=== PATIENT | male | born 1960 | race Caucasian/White ===

== ENCOUNTER → 2021-01-26 00:40 | Outpatient (CLI) | payer OTHER, SELFPAY ==
[2021-01-26 20:24] LABS: SARS-CoV-2 RNA PCR Negative
== END ==
PROVIDERS: Visit Provider Surgery
DX: Z01.812 Encounter for preprocedural laboratory examination (principal); Z20.822 Contact with and (suspected) exposure to COVID-19
CPT/HCPCS: C9803; U0003; U0005

== ENCOUNTER 2021-01-26 07:44 | Outpatient (CLI) | payer OTHER, SELFPAY ==
--- NOTE | 2021-01-26 09:00 | ECG_ITS ---
Measurements Intervals Hawkins Rate: 71 P: 78 SC: 155 QRS: 28 QRSD: 89 T: 57 QT: 359 QTc: 391 Interpretive Statements SINUS RHYTHM POSSIBLE LEFT ATRIAL ENLARGEMENT RIGHT BUNDLE BRANCH BLOCK ABNORMAL ECG Electronically Signed On 01-26-2021 7:58:12 CDT by Tyshawn Briones D.O.
== END 2021-01-26 07:45 | disposition home or self-care (01) ==
LOC: ANHSURGERY 07:49
PROVIDERS: Visit Provider Surgery
DX: Z01.810 Encounter for preprocedural cardiovascular examination (principal); I45.10 Unspecified right bundle-branch block; Z72.0 Tobacco use
CPT/HCPCS: 93005

== ENCOUNTER 2021-01-29 00:59 | Day surgery (SDC) | payer OTHER, SELFPAY ==
[2021-01-19 17:01] VITALS: BMI 23.8
--- NOTE | 2021-01-27 15:20 | PM.SD2 ---
Same Day Admit/Disch: HPI History of Present Illness Chief complaint: left inguinal hernia Narrative: Klaus Grimaldo is a 60 year old male Who noticed a left groin bulge after straining with a ranch at work. He was seen in the office and found to have a reducible left inguinal hernia. He had a right inguinal hernia repair in March of 2014. He smokes 1-1/2 packs of cigarettes per day. He is taken to surgery now for left inguinal hernia repair. [facility] Past Medical History Medical History Smoker Surgical History Surgical History History of hand surgery index finger surgery 1984 History of hernia repair Family History Family History Sibling Cerebrovascular accident Mother Family history of malignant neoplasm Father Family history of heart disease in male family member before age 55 Other Diabetes mellitus Family history of cardiovascular disease Social History Social History Smoking packs per day: 1 Smoking cigarettes per day: 20.0 Years smoked: 45 Smoking pack-years: 45.00 Smoking status: Current every day smoker Tobacco type: cigarettes Living arrangements: alone Additional occupation/education comments: [employer] care concerns: No Same Day Admit/Disch: Med Pre-admit Medications Home Medications Medication Instructions Recorded Confirmed Type hydrocodone-acetaminophen 1 - 2 tablet PO Q6H PRN #7 tablet 01/29/21 Rx ketorolac 10 mg PO Q6H 4 Days #16 tablet 01/29/21 Rx Exam Const: General: comfortable, no acute distress, alert and awake HENMT: Head: normocephalic and atraumatic Mouth: Yes Normal oral and palatal mucosa present Eyes: Conjunctivae: conjunctivae normal Pupils: Equal, round and reactive pupils present EOM: EOMs intact bilaterally Neck: Neck: normal visual inspection, no lymphadenopathy and nontender Resp: Effort & Inspection: normal respiratory effort Auscultation: clear to auscultation bilaterally Cardio: Rate: regular rate Rhythm: regular rhythm Heart sounds: no gallops, no murmurs and no rubs GI: Inspection: non-distended GI Palp: Yes Soft to palpation, No Tenderness to palpation present (GI), No Hepatomegaly present and No Splenomegaly present : Penis: Yes normal penis Scrotum: scrotum normal and inguinal hernia on the left ( Reducible left inguinal hernia) Testes: Testes normal Skin: Lesions: no lesions Rashes: no rashes Neuro: General: no focal motor deficits and CN's II-XI intact bilaterally Cranial nerves: Yes Equal, round and reactive pupils present, Yes Bilaterally intact EOM present, Yes facial symmetry and Yes Midline tongue present Speech: normal speech Motor exam (neuro): 5/5 motor strength present throughout and Motor abnormalities not present Extrem: General: no clubbing, cyanosis or edema and edema Psych: Affect: normal affect Thought process: Normal thought process present Insight: Good insight present (Psych) DS: Summary Time Spent with Patient Time attestation: Total time spent providing and/or coordinating discharge services: DS: Admitting Diagnosis Admitting Diagnosis Admitting Diagnosis: left inguinal hernia-- plan to proceed with left inguinal hernia repair under anesthesia. The procedure the risks the benefits have been discussed. All questions were answered. He understands and agrees to go ahead. smoker-- Advised to quit. Increases surgical risk. DS: Discharge Diagnosis Discharge Diagnosis (1) Left inguinal hernia: Code(s): K40.90 - Unilateral inguinal hernia, without obstruction or gangrene, not specified as recurrent Status: Chronic (2) Tobacco abuse: Code(s): Z72.0 - Tobacco use Status: Chronic Discharge Plan Discharge Patient Disposition: Home, Self-Care Discharge Instructions: 1. March sh
[2021-01-29] VITALS (7 sets, daily range): BP systolic 118–154; BP diastolic 67–93; PULSE 60–83; RESP 14–16; TEMP 36.4; O2SAT 94–100
--- NOTE | 2021-01-29 06:17 | WPDHPUPDATE1 ---
History and Physical Update Update Date/Time: 01/29/21 06:17 History and Physical has been reviewed, including an updated exam of the patient. There are NO changes in the patient's condition. Risks, benefits, and alternatives have been discussed and questions answered. Patient agrees to proceed with procedure.
[2021-01-29] MEDS: ACETAMINOPHEN 500 MG TABLET 1000 MG PO (08:43)
[2021-01-29] MEDS: KETOROLAC 15 MG/ML VIAL (*BKC) IV PUSH (09:12)
[2021-01-29] MEDS: LACTATED RINGERS 1,000 ML 30 ML IV CONT ×2 (09:12→12:26)
--- NOTE | 2021-01-29 09:22 | P.PNAN_ITS ---
Anes - Initial Pre Proc Eval Procedure: Operation Date: 01/29/21 10:30 Proposed Procedures p Left Inguinal Hernia Repair - Julito Saldana MD Date/Time: 01/29/21 09:22 Surgeon: Julito Saldana MD Pre Op Diagnosis: left inguinal hernia Patient Data Age: 60 Gender: M Height: 5 ft 6.5 in Weight: 63.5 kg Last Vital Signs Temp 36.4 C L 01/29/21 08:28 Pulse 83 01/29/21 08:28 Resp 16 01/29/21 08:28 BP 154/93 H 01/29/21 08:28 Pulse Ox 100 01/29/21 08:28 Allergies Allergy/AdvReac Type Severity Reaction Status Date / Time No Known Allergies Allergy Verified 01/29/21 08:40 Home Medications Medication Instructions Recorded Confirmed Type No Home Medications 12/04/20 01/29/21 History Patient hx anesthesia problems: none Family hx anesthesia problems: none PMFSH Past Medical History Medical History Smoker Surgical History Surgical History History of hand surgery index finger surgery 1984 History of hernia repair Family History Family History Sibling Cerebrovascular accident Mother Family history of malignant neoplasm Father Family history of heart disease in male family member before age 55 Other Diabetes mellitus Family history of cardiovascular disease Social History Social History Smoking packs per day: 1 Smoking cigarettes per day: 20.0 Years smoked: 45 Smoking pack-years: 45.00 Smoking status: Current every day smoker Tobacco type: cigarettes Living arrangements: alone Additional occupation/education comments: [employer] Spiritual care concerns: No Anes - Eval Final PreProcedure Day of Procedure 01/29/21 09:22 Patient weight: normal Heart: regular rate and rhythm Lungs: clear to auscultation Airway: Mallampati scale class 1 and other (edentulous with implant pegs) Neurological: alert and oriented Last oral intake: >/= 8 hours ASA classification: II Emergent: no Anesthetic plan: proceed Anesthesia type and monitoring: general GIVS and standard monitoring Informed Consent: The patient's anesthetic plan and its attendant risks and benefits were discussed with the patient/family/POA. Questions were solicited and answers provided to the satisfaction of the patient/family/POA.
[2021-01-29] MEDS: ceFAZolin 2 GM/D5W 50 ML 2 GM/50 ML BAG IVPB (10:58)
--- NOTE | 2021-01-29 12:29 | PM.PROC ---
Procedure Note - Detailed Date of procedure: 01/29/21 Pre-op diagnosis: left inguinal hernia Left inguinal hernia Post-op diagnosis: same (Indirect hernia) Procedure performed: Repair of left inguinal hernia with 6 cm Parietex hernia mesh system Description of procedure: The patient was taken to surgery and IV sedation was administered. The left groin and genitalia were prepped and draped. Proposed incision was marked on the skin. Local was infiltrated into the skin and the deeper subcutaneous tissues. Incision was made and deepened through the subcutaneous. Crossing veins were cauterized and divided. Dissection was carried through Abundio's fascia down to the external oblique aponeurosis. The aponeurosis was exposed as was the external ring. Additional local anesthesia was infiltrated deep to the aponeurosis in the area of the spermatic cord and inguinal canal contents. The aponeurosis was opened laterally and extended medially through the external ring. The leaves of the aponeurosis were dissected free from the spermatic cord. The ileoinguinal nerve was carefully preserved throughout the dissection and was left attached to the spermatic cord. The cord was then mobilized medially on a [place]ridge drain. The cord was dissected back to the internal ring. Dissection was then carried out in the anteromedial spermatic cord. The hernia sac was found and dissected free. The sac was then dissected back to a high dissection. It was dunked into the retroperitoneum. A 6 centimeter Parietex bishop paiute was chosen. It was folded to form a plug. It was placed in the defect. The edges were sutured to the transversalis fascia with interrupted 3 0 Vicryl suture. The patch was then cut to the appropriate size and placed over the inguinal canal floor. The lateral leaves were passed beyond the cord. The cord and ileoinguinal nerve were then laid over the patch. The external oblique aponeurosis was closed with interrupted 3 0 Vicryl suture. Abundio's fascia was closed with interrupted 3 0 Vicryl suture. Four 0 Vicryl subcuticular skin sutures were placed. The skin was closed finally with a running 4 0 Monocryl skin suture. The wound was dressed with Exofin surgical adhesive. The patient was awakened and taken to recovery in good condition. Sponge and needle counts were correct x2. Anesthesia: MAC and local (0.5% Marcaine with Exparel) Surgeon: Julito Saldana MD Med[employer] Professor: RANJITH Thurston Estimated blood loss (mL): 5 Drains: No Packing: No Pathology: none sent Complications: None Condition: stable Disposition: PACU Findings: Indirect inguinal hernia. No sliding hernia was noted.
--- NOTE | 2021-01-29 16:29 | SUR.PHASEII ---
1450 PT URINATED WITHOUT ISSUE
== END 2021-01-29 15:00 | disposition home or self-care (01) ==
PROVIDERS: Visit Provider Surgery
PROC: (CPT 49505; principal; 2021-01-29 10:30)
DX: K40.90 Unilateral inguinal hernia, without obstruction or gangrene, not specified as recurrent (principal); F17.210 Nicotine dependence, cigarettes, uncomplicated
CPT/HCPCS: 49505; A9270; C1781; C9290; J0690; J1885; J2250; J2704; J3010; J7120

== ENCOUNTER 2023-03-31 08:04 | Outpatient (CLI) | payer OTHER, SELFPAY ==
--- NOTE | ~2023-03-31 | US_ITS ---
EXAMINATION: US arterial ankle brachial ind DATE: 03/31/2023 08:57 INDICATION: Peripheral vascular disease TECHNIQUE: Segmental pressures and plethysmographic and Doppler waveforms of the brachial and lower e xtremity arteries were obtained. COMPARISON: None. FINDINGS: Right and left brachial artery pressures of 140 mm Hg and 148 mm Hg, respectively, are concordant (no rmal difference <= 30 mmHg). The right ankle-brachial index (HILDA) is 0.39 (normal >= 0.9-1.0). The right great toe-brachial index (TBI) is 0.55 (normal >= 0.65). Arterial Doppler waveforms are biphasic with brisk systolic upstrokes at the right posterior tibial artery and essentially monophasic at the right dorsalis pedis artery. The left HILDA is 0.46. The left TBI is 0.30. There are parvus and tardus arterial Doppler waveforms wi th delayed systolic upstrokes and at both the left posterior tibial and dorsalis pedis arteries appea ring nearly aphasic at the left dorsalis pedis artery. IMPRESSION: 1. Arterial occlusive disease to the bilateral lower limbs with severely decreased bilateral ABIs. Reviewed, dictated and finalized at location A. IMPRESSION: 1. Arterial occlusive disease to the bilateral lower limbs with severely decrea sed bilateral ABIs.
== END 2023-03-31 08:05 | disposition home or self-care (01) ==
PROVIDERS: PCP Family Medicine; Visit Provider Physician Assistant
DX: I70.8 Atherosclerosis of other arteries (principal)
CPT/HCPCS: 93922

== ENCOUNTER 2023-04-21 10:04 | Outpatient (CLI) | payer OTHER, SELFPAY ==
--- NOTE | 2023-04-21 11:00 | NEURO_ITS ---
Impression: # Complains of numbness of lower extremities. # Normal nerve conduction study. # Normal needle/EMG exam. # Clinical correlation recommended; Possibility of small fiber neuropathy cannot be ruled out. Nerve Conduction Studies Anti Sensory Summary Table Stim Site NR Peak (ms) P-T Amp (?V) Site1 Site2 Delta-P (ms) Dist (cm) Sesar (m/s) Left Sup Fibular Anti Sensory (Ant Lat Mall) 14 cm 3.5 8.5 14 cm Ant Lat Mall 3.5 16.0 46 Right Sup Fibular Anti Sensory (Ant Lat Mall) 14 cm 4.0 6.0 14 cm Ant Lat Mall 4.0 16.0 40 Left Sural Anti Sensory (Lat Mall) Calf 3.9 7.2 Calf Lat Mall 3.9 16.0 41 Right Sural Anti Sensory (Lat Mall) Calf 3.8 10.2 Calf Lat Mall 3.8 16.0 42 Motor Summary Table Stim Site NR Onset (ms) O-P Amp (mV) Site1 Site2 Delta-0 (ms) Dist (cm) Sesar (m/s) Left Peroneal Motor (Vastus Med) Ankle 4.9 0.8 Popit Ankle 8.8 39.0 44 Popit 13.7 1.0 Right Peroneal Motor (Vastus Med) Ankle 4.5 0.3 Popit Ankle 8.0 37.0 46 Popit 12.5 0.2 Left Tibial Motor (Abd Coughlin Brev) Ankle 4.9 3.5 Knee Ankle 9.9 41.0 41 Knee 14.8 2.4 Right Tibial Motor (Abd Coughlin Brev) Ankle 4.5 7.0 Knee Ankle 8.2 39.0 48 Knee 12.7 5.9 F Wave Studies NR F-Lat (ms) L-R F-Lat (ms) Left Peroneal (Mrkrs) (EDB) 52.40 0.94 Right Peroneal (Mrkrs) (EDB) 51.46 0.94 Left Tibial (Mrkrs) (Abd Hallucis) 51.57 0.12 Right Tibial (Mrkrs) (Abd Hallucis) 51.45 0.12 EMG Side Muscle Nerve Root Ins Act Fibs Amp Dur Recrt Comment Right AntTibialis Dp Br Fibular L4-5 Nml Nml Nml Nml Nml Right Gastroc Tibial S1-2 Nml Nml Nml Nml Nml Right Fibularis Long Sup Br Fibular L5-S1 Nml Nml Nml Nml Nml Right Flex Dig Long Tibial L5-S2 Nml Nml Nml Nml Nml Right Ext Dig Brev Dp Br Fibular L5, S1 Nml Nml Nml Nml Nml Left AntTibialis Dp Br Fibular L4-5 Nml Nml Nml Nml Nml Left Gastroc Tibial S1-2 Nml Nml Nml Nml Nml Left Fibularis Long Sup Br Fibular L5-S1 Nml Nml Nml Nml Nml Left Flex Dig Long Tibial L5-S2 Nml Nml Nml Nml Nml Left Ext Dig Brev Dp Br Fibular L5, S1 Nml Nml Nml Nml Nml MTDD
== END 2023-04-21 10:05 | disposition home or self-care (01) ==
PROVIDERS: PCP Family Medicine; Visit Provider Physician Assistant
DX: G62.9 Polyneuropathy, unspecified (principal)
CPT/HCPCS: 95886; 95910

== ENCOUNTER 2023-10-07 01:48 | Day surgery (SDC) | payer OTHER, SELFPAY ==
[2023-09-21 15:04] VITALS: BMI 22.7
--- NOTE | 2023-10-05 09:53 | SUR.PREOP ---
Patient called regarding upcoming procedure. Message left on patient's voicemail regarding preop instructions, appointment times, and procedure prep.
--- NOTE | 2023-10-06 14:18 | PM.HPGS ---
History of Present Illness History of Present Illness Consent: Risks, benefits, and alternatives have been discussed and questions answered. Patient agrees to proceed with procedure. Chief complaint: history of colon polyps Narrative: Klaus Grimaldo is a 63 year old male referred for colon cancer screening; his last colonoscopy was 10 years ago. Review of Systems Review of Systems: All systems reviewed & are unremarkable except as noted in HPI and below PMFSH Past Medical History Medical History Hypertension Peripheral arterial disease Surgical History Surgical History History of aortoiliofemoral vascular bypass 06/07/2023 History of hand surgery index finger surgery 1984 History of hernia repair left inguinal hernia repair 01/29/2021 Family History Family History Sibling Cerebrovascular accident Mother Family history of malignant neoplasm Father Family history of heart disease in male family member before age 55 Other Diabetes mellitus Family history of cardiovascular disease Social History Social History Smoking packs per day: 1.5 Smoking cigarettes per day: 30.0 Years smoked: 50 Smoking pack-years: 75.00 Smoking status: Former smoker Tobacco type: cigarettes Alcohol intake: never Substance use: never Substance use type: does not use Lack of Transportation: No Lack of Food: Never True Current Housing: I Have Housing Concerned About Future Housing: No Difficulty Paying Gas/Electric Bills: No Difficulty Paying for Meds: No Currently Unemployed: No Education: Trade/Vocational Certificate Difficulty w/ Childcare or Family Care: No Living arrangements: alone Occupation/Education: occupation Additional occupation/education comments: [employer] Gender identity (if verbalized by the patient): Male Sexual Orientation (if Verbalized by the Patient): Straight or Heterosexual Spiritual care concerns: No Meds Home Medications and Allergies Home Medications Medication Instructions Recorded Confirmed Type aspirin 81 mg tablet,delayed 81 mg PO DAILY #90 tabs 06/22/23 09/21/23 Rx release (Adult Aspirin Regimen) atorvastatin 20 mg tablet 20 mg PO DAILY #90 tabs 06/22/23 09/21/23 Rx hydrocortisone 2.5 % topical cream 1 applic RECTAL DAILY PRN 07/28/23 09/21/23 Rx with perineal applicator hemorrhoids #30 grams (Anusol-HC) losartan 50 mg tablet 50 mg PO DAILY #30 tabs 09/14/23 09/21/23 Rx Allergies Allergy/AdvReac Type Severity Reaction Status Date / Time No Known Allergies Allergy Verified 09/21/23 15:01 Exam Resp: Auscultation: clear to auscultation bilaterally Cardio: Rate: regular rate Rhythm: regular rhythm GI: GI Palp: Yes Soft to palpation and No Tenderness to palpation present (GI) Assessment and Plan Assessment and plan (1) Colon cancer screening: Code(s): Z12.11 - Encounter for screening for malignant neoplasm of colon Status: Acute Assessment and Plan: Colonoscopy with possible biopsy or polypectomy or cautery or injection of substances.
[2023-10-07 12:34] VITALS: BP 160/95; PULSE 97; RESP 20; TEMP 36.8; O2SAT 98; BMI 21.3
--- NOTE | 2023-10-07 12:38 | WPDANESEPPF ---
Anes - Initial Pre Proc Eval Procedure: Operation Date: 10/07/23 13:30 Proposed Procedures p Colonoscopy - Elia Whitfield MD Date/Time: 10/07/23 12:38 Surgeon: Elia Whitfield MD Pre Op Diagnosis: history of colon polyps Patient Data Age: 63 Gender: M Height: 1.68 m Weight: 59.9 kg Last Vital Signs Temp 98.2 F 10/07/23 12:34 Pulse 97 10/07/23 12:34 Resp 20 10/07/23 12:34 BP 160/95 H 10/07/23 12:34 Pulse Ox 98 10/07/23 12:34 O2 Del Method Room Air 10/07/23 12:34 Allergies Allergy/AdvReac Type Severity Reaction Status Date / Time No Known Allergies Allergy Verified 09/21/23 15:01 Home Medications Medication Instructions Recorded Confirmed Type aspirin 81 mg tablet,delayed 81 mg PO DAILY #90 tabs 06/22/23 09/21/23 Rx release (Adult Aspirin Regimen) atorvastatin 20 mg tablet 20 mg PO DAILY #90 tabs 06/22/23 09/21/23 Rx hydrocortisone 2.5 % topical cream 1 applic RECTAL DAILY PRN 07/28/23 09/21/23 Rx with perineal applicator hemorrhoids #30 grams (Anusol-HC) losartan 50 mg tablet 50 mg PO DAILY #30 tabs 09/14/23 09/21/23 Rx Patient hx anesthesia problems: none Family hx anesthesia problems: none Results Review: All pre-operative results and documents have been reviewed as part of the pre-operative evaluation. [facility] Past Medical History Medical History Hypertension Peripheral arterial disease Surgical History Surgical History History of aortoiliofemoral vascular bypass 06/07/2023 History of hand surgery index finger surgery 1984 History of hernia repair left inguinal hernia repair 01/29/2021 Family History Family History Sibling Cerebrovascular accident Mother Family history of malignant neoplasm Father Family history of heart disease in male family member before age 55 Other Diabetes mellitus Family history of cardiovascular disease Social History Social History Smoking packs per day: 1.5 Smoking cigarettes per day: 30.0 Years smoked: 50 Smoking pack-years: 75.00 Smoking status: Former smoker Tobacco type: cigarettes Alcohol intake: never Substance use: never Substance use type: does not use Lack of Transportation: No Lack of Food: Never True Current Housing: I Have Housing Concerned About Future Housing: No Difficulty Paying Gas/Electric Bills: No Difficulty Paying for Meds: No Currently Unemployed: No Education: Trade/Vocational Certificate Difficulty w/ Childcare or Family Care: No Living arrangements: alone Occupation/Education: occupation Additional occupation/education comments: [employer] Gender identity (if verbalized by the patient): Male Sexual Orientation (if Verbalized by the Patient): Straight or Heterosexual Spiritual care concerns: No Anes - Eval Final PreProcedure Day of Procedure 10/07/23 12:38 Patient weight: normal Heart: regular rate and rhythm Lungs: clear to auscultation Airway: Mallampati scale class II Neurological: alert and oriented Last oral intake: >/= 8 hours ASA classification: III Emergent: no Anesthetic plan: proceed Anesthesia type and monitoring: general GIVS and standard monitoring Results Review: All pre-operative results and documents have been reviewed as part of the pre-operative evaluation. Informed Consent: The patient's anesthetic plan and its attendant risks and benefits were discussed with the patient/family/POA. Questions were solicited and answers provided to the satisfaction of the patient/family/POA.
[2023-10-07] MEDS: LACTATED RINGERS 1,000 ML 150 ML IV CONT (12:47)
[2023-10-07 13:28] VITALS: BP 103/69; PULSE 79; RESP 25; O2SAT 98
[2023-10-07 13:38] VITALS: BP 107/72; PULSE 86; RESP 18; O2SAT 99
[2023-10-07 13:48] VITALS: BP 148/105; PULSE 91; RESP 16; O2SAT 100
== END 2023-10-07 14:01 | disposition home or self-care (01) ==
PROVIDERS: PCP Family Medicine; Visit Provider Internal Medicine Gastroenterology
PROC: 0DJD8ZZ Inspection of Lower Intestinal Tract, Via Natural or Artificial Opening Endoscopic (ICD-10-PCS; CPT 45378; principal; 2023-10-07 13:30)
DX: Z12.11 Encounter for screening for malignant neoplasm of colon (principal); K64.8 Other hemorrhoids; K63.5 Polyp of colon; K62.1 Rectal polyp; I10 Essential (primary) hypertension; Z79.82 Long term (current) use of aspirin; Z95.1 Presence of aortocoronary bypass graft; Z87.891 Personal history of nicotine dependence; Z86.010 Personal history of colon polyps; Z86.79 Personal history of other diseases of the circulatory system; Z82.49 Family history of ischemic heart disease and other diseases of the circulatory system; Z80.9 Family history of malignant neoplasm, unspecified
CPT/HCPCS: 45380; 45385; 88305; J2704; J7120